=== PATIENT | male | born 1995 | race Caucasian/White ===

== ENCOUNTER → 2023-03-14 10:46 | Outpatient (CLI) | payer OTHER, SELFPAY ==
--- NOTE | 2023-03-14 10:50 | DI.RAD.S_ITS ---
PROCEDURE: FL SHOULDER INJECTION MR/CT LT INDICATIONS: Other nondisplaced fracture of upper end of unspec COMPARISON: None. TECHNIQUE: The indications, alternatives, benefits, risks, and complications of the procedure were explained to the patient. Written informed consent was obtained and placed in the chart. The shoulder was examined fluoroscopically and a site for needle placement chosen for entry into the glenohumeral joint from an anterior approach. The skin was prepped and draped in a sterile fashion, and 1% lidocaine infiltrated from skin down to joint capsule. A spinal needle was inserted into the glenohumeral joint, and a small amount of iodinated contrast media injected to confirm intra-articular placement of the needle tip. This was followed by approximately 12 mL dilute solution of a gadolinium containing MR contrast agent. The needle was removed and a dressing was applied. The patient was given postprocedural instructions and sent to the MR suite for MR imaging. FINDINGS: A single fluoroscopic spot image demonstrates intra-articular location of injected iodinated contrast. IMPRESSION: Successful fluoroscopically guided administration of dilute Gadolinium solution into the shoulder joint for MR arthrogram. Dictated by: Wiley Schultz M.D. on 03/14/2023 at 15:29 Approved by: Wiley Schultz M.D. on 03/14/2023 at 15:30
--- NOTE | 2023-03-14 10:50 | DI.MRI.S_ITS ---
PROCEDURE: MR SHOULDER LT W CON INDICATIONS: Other nondisplaced fracture of upper end of unspec TECHNIQUE: After the administration of 12 mL of dilute intra-articular Gadolinium contrast, oblique coronal T1 and T2 spin echo with fat saturation, oblique sagittal T1 spin echo with and without fat saturation, oblique sagittal T2 fast spin echo with fat saturation, axial T1 spin echo with fat saturation through the shoulder. COMPARISON: None. FINDINGS: Image quality: Excellent. Rotator cuff: Low to moderate grade articular surface partial-thickness tear involving distal supraspinatus at its insertion on the humeral head is seen. Distal infraspinatus and subscapularis tendons are intact. No full-thickness rotator cuff tendon rupture. No rotator cuff muscle atrophy on sagittal images. Bones and bursae: Chronic appearing Hill-Sachs deformity involving posterior lateral aspect of humeral head is seen. No marrow edema. No acute fracture or dislocation. No Bankart fracture. No acromioclavicular joint degeneration. The acromion demonstrates conventional anatomy, without an os acromiale. Capsule and soft tissues: There is signal abnormality and contour irregularity with contrast extension involving anterior inferior labrum at 5 to 6 o'clock position consistent with a Bankart lesion. The long head of the biceps tendon demonstrates normal location and morphology. The rotator interval appears normal, without fibrosis. The coracohumeral ligament is of normal thickness. No intra-articular bodies. IMPRESSION: 1. Low-grade articular surface partial-thickness tear involving distal supraspinatus at its insertion on the humeral head. No full-thickness rotator cuff tendon rupture. 2. Chronic appearing Hill-Sachs deformity involving posterior lateral humeral head. No Bankart fracture. No marrow edema. No intra-articular loose bodies. 3. Suggestion of anterior-inferior labral tear at 5 to 6 o'clock position consistent with Bankart lesion. Dictated by: Tevin Frederick M.D. on 03/14/2023 at 14:31 Approved by: Tevin Frederick M.D. on 03/14/2023 at 15:31
--- NOTE | 2023-03-14 10:56 | DI.CT.S_ITS ---
PROCEDURE: CT HUMERUS LEFT WITHOUT CON INDICATIONS: Other nondisplaced fracture of upper end of unspec TECHNIQUE: Noncontrast 1-1.5 mm thick sections acquired from the acromioclavicular joint to the inferior scapula, with coronal and sagittal reformatting. COMPARISON: [facility], MR, MR SHOULDER LT W CON, 03/14/2023, 11:59. FINDINGS: Image quality: Excellent. Bones: A deep Hill-Sachs lesion is seen at the posterosuperior humeral head measuring approximately 23 x 15 x 6 mm. No glenoid fracture or loss of glenoid bone stock is seen. The remaining visualized osseous structures are intact. No significant glenohumeral or acromioclavicular degenerative changes. Included portions of the left-sided ribs are intact. No suspicious osseous lesion. Soft tissues: No significant glenohumeral effusion. The rotator cuff musculature is normal in bulk. The articular cartilages, labrum, ligaments, and tendons are better evaluated on the shoulder MRI performed on the same day. The upper musculature is normal in bulk. No significant elbow effusion. IMPRESSION: Deep Hill-Sachs lesion is seen at the posterosuperior humeral head measuring 23 x 15 x 6 mm. No glenoid fracture is seen. Approved by: Tarun Hicks M.D. on 03/14/2023 at 16:04
[2023-03-14] MEDS: SODIUM CHLORIDE 0.9 % 20 ML VIAL IV (11:40)
[2023-03-14] MEDS: LIDOCAINE 1% 20 ML INJ (11:40)
== END ==
PROVIDERS: Referring Provider General Practice; Visit Provider General Practice
DX: M21.822 Other specified acquired deformities of left upper arm (principal); M75.112 Incomplete rotator cuff tear or rupture of left shoulder, not specified as traumatic; S42.29 Other fracture of upper end of humerus
CPT/HCPCS: 23350; 73200; 73222